=== PATIENT | female | born 1995 | race Caucasian/White ===

== ENCOUNTER 2016-11-02 13:07 | Inpatient (IN) | payer OTHER ==
[~2016-11-02] VITALS: Ht 160 cm; Wt 60.4 kg
[2016-11-02] VITALS (7 sets, daily range): BP systolic 103–113; BP diastolic 63–76; PULSE 86–102; TEMP 36.7–37.1; O2SAT 96–100; Ht 160 cm; Wt 60.4 kg
[2016-11-02 13:53] LABS: BASO % 0.1 %; BASO ABS # 0.02 K/uL (0-0.2); COMPLETE YES; EOS % 0.1 %; HEMATOCRIT 44.6 % (37-47); IG% 0.4 %; LYMPH % 12.4 %; MEAN CELL VOLUME 87.6 fL (80-100); MEAN CORPUSCULAR HEMOGLOBIN 29.5 pg (25-34); MEAN CORPUSCULAR HGB CONC 33.6 g/dl (32-36); MEAN PLATELET VOLUME 9.7 fL (7.4-10.4); MONO % 4.3 %; NEUT % 82.7 %; PLATELET COUNT 247 K/uL (130-400); RED BLOOD COUNT 5.09 M/uL (4.2-5.4); WHITE BLOOD COUNT 14.53 K/uL (4.8-10.8)
[2016-11-02 14:09] LABS: BUN/CREATININE RATIO 15.9 (10-20); CALCIUM 9.8 mg/dl (8.5-10.1); CREATININE 0.75 mg/dl (0.60-1.20); POTASSIUM 3.6 mmol/L (3.5-5.1)
[2016-11-02 14:19] LABS: URINE APPEARANCE CLEAR (CLEAR); URINE BILIRUBIN NEG (NEG); URINE COLOR YELLOW; URINE NITRITE NEG (NEG); URINE PH 5.5 (4.5-7.5); URINE SPECIFIC GRAVITY 1.021 (1.000-1.030); UROBILINOGEN NEG (NEG)
[2016-11-02 14:20] LABS: MANUAL MICROSCOPIC REQUIRED? NO; REVIEW REQ? NO
--- NOTE | 2016-11-02 15:16 | DIAGNOSTIC IMAGING REPORT ---
ULTRASOUND RIGHT UPPER QUADRANT ABDOMEN CLINICAL HISTORY: Right upper quadrant abdominal pain. COMPARISON STUDY: No priors. TECHNIQUE: Real-time, grayscale, and color flow sonography of the right upper quadrant of the abdomen was performed. Images are reviewed in the transverse and longitudinal planes. FINDINGS: Liver: The liver is normal in size and echotexture. There is no intrahepatic biliary ductal dilatation. The main portal vein is patent. Gallbladder: The gallbladder is normal in appearance. No gallstones are identified. There is no gallbladder wall thickening or pericholecystic fluid. A sonographic Holland's sign is reportedly absent. The common bile duct measures up to 0.3 cm in diameter. Pancreas: Visualized portions of the pancreatic head and body are normal in appearance. Right kidney: Survey images of the right kidney demonstrate normal size and echotexture. There is no hydronephrosis. Ascites: None. IMPRESSION: Unremarkable sonographic assessment of the right upper quadrant. No gallstones are identified. Electronically signed by: Nigel Fitzgerald M.D. 11/02/2016 3:15 PM Dictated Date/Time: 11/02/2016 3:14 PM
[2016-11-02] MEDS ORDERED: OPTIRAY 320 IV PRN (15:30)
--- NOTE | 2016-11-02 16:02 | DIAGNOSTIC IMAGING REPORT ---
CT SCAN OF THE ABDOMEN AND PELVIS WITH IV CONTRAST CLINICAL HISTORY: Right upper quadrant abdominal pain. COMPARISON STUDY: Abdominal ultrasound performed the same day 11/02/2016. TECHNIQUE: Following the IV administration of 115 cc of Optiray 320, CT scan of the abdomen and pelvis is performed from the lung bases to the proximal femora. Images are reviewed in the axial, sagittal, and coronal planes. IV contrast was administered without complication. The examination was performed in suboptimal fashion without oral contrast. Automated dose control exposure was utilized. CT DOSE: 252.09 mGy.cm FINDINGS: Lung bases: The heart is normal in size and without pericardial effusion. The lung bases are clear. Liver: The contrast-enhanced liver is normal in size, contour, and attenuation. There is no intrahepatic biliary ductal dilatation. The hepatic veins and portal veins are patent. Gallbladder: Unremarkable. Spleen: Normal in size and attenuation. Pancreas: Unremarkable. Adrenal glands: Unremarkable. Kidneys: The contrast enhanced kidneys are normal in size and without hydronephrosis. The kidneys enhance symmetrically. Abdominal vasculature: The abdominal aorta is normal in course and caliber. Bowel: The small bowel and colon are normal in course and caliber. The appendix is fluid-filled and mildly distended measuring up to 8 mm, best seen on axial image #223. The appendiceal wall is thickened and hyperemic and there is faint periappendiceal inflammation and trace fluid. The appearance is concerning for mild acute appendicitis. There is no evidence of appendiceal abscess. Peritoneum: There is no intraperitoneal free air or abdominal ascites. Lymphadenopathy: None. Pelvic viscera: The bladder, uterus, and adnexa are normal as visualized. There are bilateral ovarian follicles. Trace free fluid is seen in the cul-de-sac. Nabothian cysts are suspected in the cervix. Skeletal structures: A pectus deformity is incidentally noted. No lytic or blastic lesions are seen. IMPRESSION: 1. Findings are concerning for mild acute appendicitis. There is no intraperitoneal free air or evidence of abscess. Surgical consultation is advised. If acute appendicitis does not fit the clinical presentation consider short-term follow-up imaging of the pelvis only for reassessment. 2. There is trace free fluid in the cul-de-sac, likely within physiologic limits. Electronically signed by: Nigel Fitzgerald M.D. 11/02/2016 4:01 PM Dictated Date/Time: 11/02/2016 3:55 PM
[2016-11-02] MEDS ORDERED: CEFOXITIN SOD 2 GM VIAL IV STA (16:11)
--- NOTE | 2016-11-02 16:47 | History and Physical ---
History & Physical Date Nov 02, 2016. Chief Complaint abd pain History of Present Illness The patient is a 21 year old female with complaints of Rt sided abd pain- found on w/u including CT with acute appendicitis Past Medical/Surgical History Medical Problems: (1) Pelvic inflammatory disease Additional History Hepatic Disease: No Endocrine Disorder: No Kidney Disease: No Hypertension: No Heart Disease: No Bleeding Tendencies: No Allergies Coded Allergies: No Known Allergies (Unverified , 11/02/16) Home Medications No Active Prescriptions or Reported Meds Physical Examination Skin: warm/dry, no rash Eyes: sclerae normal Head: atraumatic Neck: supple Respiratory/Chest: no respiratory distress Cardiovascular: regular rate, rhythm Abdomen / GI: normal bowel sounds (abd- tender RLQ) Extremities: normal inspection Neurologic/Psych: alert Diagnosis acute appendicitis Plan of Treatment For laparoscopic appendectomy, possible open operation IV atbx
--- NOTE | 2016-11-02 17:18 | EMERGENCY ROOM VISIT NOTE ---
History Report prepared by Paula: Juliane Keith Under the Supervision of: Dr. Ferdinand Vasquez M.D. First contact with patient: 13:24 Chief Complaint: RIB PAIN Stated Complaint: PAIN IN LOWER PART OF RT RIB History of Present Illness The patient is a 21 year old female who presents to the Emergency Room with complaints of waxing and waning right upper quadrant abdominal pain that began this morning. She currently rates her discomfort as a 4/10 in severity describing her discomfort as a sharp pain. The patient states that this morning she woke up with diffuse abdominal pain, but now she localizes the pain to her right upper quadrant that radiates to her back. She additionally associates nausea and diarrhea with her symptoms today. The patient states that she went to [facility] today and states that she was referred to the emergency department for further work up regarding her gallbladder. She states that there is a family history of gallbladder disease, stating that her mother had a cholecystectomy at a young age. The patient states that she has never been in the past, and denies her mother being prior to her gallbladder issues. She denies using any control pills and denies being a smoker. The patient denies any chest pain, shortness of breath, vomiting, urinary symptoms, or leg pain or swelling. Source of History: patient Onset: this morning Position: abdomen (RUQ) Symptom Intensity: 4/10 Quality: sharp Timing: waxes/wanes Associated Symptoms: + diarrhea, + nausea, No SOB, No chest pain, No urinary symptoms, No vomiting Review of Systems See HPI for pertinent positives & negatives. A total of 10 systems reviewed and were otherwise negative. Past Medical & Surgical Medical Problems: (1) Acute appendicitis (2) Pelvic inflammatory disease Family History FHx: gallbladder disease Heart disease Kidney disease Kidney stones Social History Smoking Status: Never Smoker Smokeless Tobacco Use: No Alcohol Use: occasionally Marital Status: single Housing Status: lives with roommate Occupation Status: [employer] student Current/Historical Medications No Active Prescriptions or Reported Meds Allergies Coded Allergies: No Known Allergies (Unverified , 11/02/16) Physical Exam Vital Signs Date Time Temp Pulse Resp B/P Pulse Ox O2 Delivery O2 Flow Rate FiO2 11/02/16 16:38 86 20 115/91 100 Room Air 11/02/16 14:56 105 18 105/61 99 Room Air 11/02/16 13:20 37.0 113 18 123/72 95 Room Air Physical Exam Constitutional: Vital signs reviewed. Eyes: Pupils are equal round reactive to light. Conjunctiva are noninjected. ENT: Pharynx is clear without erythema or exudate. Mucous membranes are moist. Neck supple without meningeal signs. Respiratory: Clear to auscultation bilaterally. Breath sounds are equal bilaterally. Cardiovascular: Regular rate and rhythm. No rubs or gallops. GI: Right upper quadrant and epigastric tenderness. No Holland's sign. Soft, nondistended. Bowel sounds are present. Musculoskeletal: No peripheral edema. No CVA tenderness. Integumentary: No cyanosis. Neurological: The patient is awake and alert. No focal deficits. Psychiatric: Normal affect. Medical Decision & Procedures ER Provider Diagnostic Interpretation: Radiology results as stated below per my review and the radiologist's interpretation: ULTRASOUND RIGHT UPPER QUADRANT ABDOMEN CLINICAL HISTORY: Right upper quadrant abdominal pain. COMPARISON STUDY: No priors. TECHNIQUE: Real-time, grayscale, and color flow sonography of the right upper quadrant of the abdomen was performed. Images are reviewed in the transverse and longitudinal planes. FINDINGS: Liver: The liver is normal in size and echotexture. There is no intrahepatic biliary ductal dilatation. The main portal vein is patent. Gallbladder: The gallbladder is normal in appearance. No gallstones are identified. There is no gallbladder wall thickening or pericholecystic fluid. A sonographic Holland's sign is reportedly absent. The common bile duct measures up to 0.3 cm in diameter. Pancreas: Visualized portions of the pancreatic head and body are normal in appearance. Right kidney: Survey images of the right kidney demonstrate normal size and echotexture. There is no hydronephrosis. Ascites: None. IMPRESSION: Unremarkable sonographic assessment of the right upper quadrant. No gallstones are identified. Electronically signed by: Nigel Fitzgerald M.D. 11/02/2016 3:15 PM Dictated Date/Time: 11/02/2016 3:[address] SCAN OF THE ABDOMEN AND PELVIS WITH IV CONTRAST CLINICAL HISTORY: Right upper quadrant abdominal pain. COMPARISON STUDY: Abdominal ultrasound performed the same day 11/02/2016. TECHNIQUE: Following the IV administration of 115 cc of Optiray 320, CT scan of the abdomen and pelvis is performed from the lung bases to the proximal femora. Images are reviewed in the axial, sagittal, and coronal planes. IV contrast was administered without complication. The examination was performed in suboptimal fashion without oral contrast. Automated dose control exposure was utilized. CT DOSE: 252.09 mGy.cm FINDINGS: Lung bases: The heart is normal in size and without pericardial effusion. The lung bases are clear. Liver: The contrast-enhanced liver is normal in size, contour, and attenuation. There is no intrahepatic biliary ductal dilatation. The hepatic veins and portal veins are patent. Gallbladder: Unremarkable. Spleen: Normal in size and attenuation. Pancreas: Unremarkable. Adrenal glands: Unremarkable. Kidneys: The contrast enhanced kidneys are normal in size and without hydronephrosis. The kidneys enhance symmetrically. Abdominal vasculature: The abdominal aorta is normal in course and caliber. Bowel: The small bowel and colon are normal in course and caliber. The appendix is fluid-filled and mildly distended measuring up to 8 mm, best seen on axial image #223. The appendiceal wall is thickened and hyperemic and there is faint periappendiceal inflammation and trace fluid. The appearance is concerning for mild acute appendicitis. There is no evidence of appendiceal abscess. Peritoneum: There is no intraperitoneal free air or abdominal ascites. Lymphadenopathy: None. Pelvic viscera: The bladder, uterus, and adnexa are normal as visualized. There are bilateral ovarian follicles. Trace free fluid is seen in the cul-de-sac. Nabothian cysts are suspected in the cervix. Skeletal structures: A pectus deformity is incidentally noted. No lytic or blastic lesions are seen. IMPRESSION: 1. Findings are concerning for mild acute appendicitis. There is no intraperitoneal free air or evidence of abscess. Surgical consultation is advised. If acute appendicitis does not fit the clinical presentation consider short-term follow-up imaging of the pelvis only for reassessment. 2. There is trace free fluid in the cul-de-sac, likely within physiologic limits. Electronically signed by: Nigel Fitzgerald M.D. 11/02/2016 4:01 PM Dictated Date/Time: 11/02/2016 3:55 PM Laboratory Results 11/02/16 13:45 Red Blood Count 5.09, Mean Corpuscular Volume 87.6, Mean Corpuscular Hemoglobin 29.5, Mean Corpuscular Hemoglobin Concent 33.6, Mean Platelet Volume 9.7, Neutrophils (%) (Auto) 82.7, Lymphocytes (%) (Auto) 12.4, Monocytes (%) (Auto) 4.3, Eosinophils (%) (Auto) 0.1, Basophils (%) (Auto) 0.1, Neutrophils # (Auto) 12.01, Lymphocytes # (Auto) 1.80, Monocytes # (Auto) 0.62, Eosinophils # (Auto) 0.02, Basophils # (Auto) 0.02 11/02/16 13:45 Test 11/02/16 13:40 11/02/16 13:45 Urine Color YELLOW Urine Appearance CLEAR (CLEAR) Urine pH 5.5 (4.5-7.5) Urine Specific [place] 1.021 (1.000-1.030) Urine Protein NEG (NEG) Urine Glucose (UA) NEG (NEG) Urine Ketones NEG (NEG) Urine Occult Blood NEG (NEG) Urine Nitrite NEG (NEG) Urine Bilirubin NEG (NEG) Urine Urobilinogen NEG (NEG) Urine Leukocyte Esterase NEG (NEG) Urine Test NEG (NEG) White Blood Count 14.53 K/uL (4.8-10.8) Red Blood Count 5.09 M/uL (4.2-5.4) Hemoglobin 15.0 g/dL (12.0-16.0) Hematocrit 44.6 % (37-47) Mean Corpuscular Volume 87.6 fL (80-100) Mean Corpuscular Hemoglobin 29.5 pg (25-34) Mean Corpuscular Hemoglobin Concent 33.6 g/dl (32-36) Platelet Count 247 K/uL (130-400) Mean Platelet Volume 9.7 fL (7.4-10.4) Neutrophils (%) (Auto) 82.7 % Lymphocytes (%) (Auto) 12.4 % Monocytes (%) (Auto) 4.3 % Eosinophils (%) (Auto) 0.1 % Basophils (%) (Auto) 0.1 % Neutrophils # (Auto) 12.01 K/uL (1.4-6.5) Lymphocytes # (Auto) 1.80 K/uL (1.2-3.4) Monocytes # (Auto) 0.62 K/uL (0.11-0.59) Eosinophils # (Auto) 0.02 K/uL (0-0.5) Basophils # (Auto) 0.02 K/uL (0-0.2) RDW Standard Deviation 41.5 fL (36.4-46.3) RDW Coefficient of Variation 12.9 % (11.5-14.5) Immature Granulocyte % (Auto) 0.4 % Immature Granulocyte # (Auto) 0.06 K/uL (0.00-0.02) Anion Gap 11.0 mmol/L (3-11) Est Creatinine Clear Calc Drug Dose 98.9 ml/min Estimated GFR () 133.0 Estimated GFR (Non- 114.7 BUN/Creatinine Ratio 15.9 (10-20) Calcium Level 9.8 mg/dl (8.5-10.1) Total Bilirubin 2.2 mg/dl (0.2-1) Direct Bilirubin 0.4 mg/dl (0-0.2) Aspartate Amino Transf (AST/SGOT) 20 U/L (15-37) Alanine Aminotransferase (ALT/SGPT) 27 U/L (12-78) Alkaline Phosphatase 113 U/L (45-117) Total Protein 8.9 gm/dl (6.4-8.2) Albumin 4.9 gm/dl (3.4-5.0) Lipase 70 U/L (73-393) Laboratory results as reviewed by me. Medications Administered Medications (Trade) Dose Ordered Sig/Chitra Route Start Time Stop Time Status Last Admin Dose Admin Cefoxitin Sodium (Mefoxin IV) 2,000 mg NOW STAT IV 11/02/16 16:11 11/02/16 16:13 DC 11/02/16 16:35 2,000 MG ED Course 1328: The patient was evaluated in room B4B. A complete history and physical exam was performed. 1530: I reevaluated the patient and she is noticing more pain into her right lower quadrant. She agreed to a CT scan to rule out appendicitis. The patient denies any chest pain or shortness of breath. She states that two weeks ago she was treated for possible PID with antibiotics. She denies any abnormal vaginal discharge or bleeding. The patient states that she tested negative for gonorrhea and Chlamydia. 1607: I reevaluated the patient and she is now localizing her abdominal pain to McBurneys point. I discussed all the exam findings with her and I discussed the treatment plan. She verbalized complete understanding and agreement. She will be evaluated for further treatment. 1608: I discussed the patients case with Dr. Perez, General Surgery. He wants the patient to receive antibiotics and he will see the patient. 1611: Ordered Mefoxin IV 2000 mg IV. Medical Decision This is a 21-year-old female who presents with right-sided abdominal pain. Differential diagnosis includes kidney stone, cholelithiasis, cholecystitis, pancreatitis, appendicitis. I did perform a limited focused review of portions of the patient's old chart on the electronic medical record. The patient has had no prior visits. I did evaluate the patient as noted above. The patient is having right-sided abdominal pain. She is mostly tender in the right upper quadrant and mid abdomen. She does not have significant tenderness at McBurney's point. She does have a strong family history of gallbladder disease and stated that her mother had her gallbladder out when she was young and before she was . IV access was established. She declined any pain medicines. The patient was made nothing by mouth. Her urinalysis is unremarkable. Urine test is negative. I did order and review the patient's blood work as noted in the electronic medical record. Her white blood cell count is elevated. LFTs are unremarkable. I did order an ultrasound of the right upper quadrant. There is no evidence of hydronephrosis or gallbladder disease. I did reassess the patient. She is now localizing her pain to the right lower quadrant and is tender at McBurney's point. After discussion with the patient, I did order a CT of the abdomen and pelvis. I did review the images myself as well as the radiology report as described above. She does appear to have an early appendicitis. I did discuss case with Dr. Perez of surgery. I did treat the patient with Mefoxin IV. Consults Time Called: 1606 Consulting Physician: Dr. Perez, General Surgery Returned Call: 1608 I discussed the patients case with Dr. Perez, General Surgery. He wants the patient to receive antibiotics and he will down to see the patient. Impression Primary Impression: Acute appendicitis Scribe Attestation The scribe's documentation has been prepared under my direct and personally reviewed by me in its entirety. I confirm that the note above accurately reflects all work, treatment, procedures, and medical decision making performed by me. Departure Information Dispostion Being Evaluated By Surgeon Prescriptions No Active Prescriptions or Reported Meds Referrals No Doctor, Assigned (PCP) Problem Qualifiers Primary Impression: Acute appendicitis Acute appendicitis type: unspecified acute appendicitis type Qualified Codes : K35.80 - Unspecified acute appendicitis
[2016-11-02] MEDS ORDERED: BUPIVACAINE 0.5 % 5 MG/1 ML MPF 30ML VIAL ONE (17:25)
[2016-11-02] MEDS ORDERED: KETOROLAC TROMETHAMINE 30 MG/ML VIAL IV. PRN (17:45)
[2016-11-02] MEDS ORDERED: HYDROmorphone INJ 2 MG/ML SYR/VIAL IV PRN (17:45)
[2016-11-02] MEDS ORDERED: MIDAZOLAM HCL 1 MG/ML 2ML VIAL ONE (17:45)
[2016-11-02] MEDS ORDERED: ATROPINE SULFATE 0.1 MG/ML 5ML SYR IV PRN (17:45)
[2016-11-02] MEDS ORDERED: PROMETHAZINE HCL INJ 12.5 MG in SODIUM CHLORIDE 0.9% 50ML 50 ML IV PRN ×2 (17:45→19:45)
[2016-11-02] MEDS ORDERED: ONDANSETRON INJ 2 MG/ML 2 ML VIAL IV PRN ×2 (17:45→19:15)
[2016-11-02] MEDS ORDERED: FENTANYL CITRATE INJ 50 MCG/1 ML 2 ML VIAL ONE ×2 (17:46→18:49)
[2016-11-02] MEDS ORDERED: PROPOFOL IV EMULSION 10 MG/ML 20 ML VIAL IV ONE (18:57)
[2016-11-02] MEDS ORDERED: ROCURONIUM BROMID 50MG/5ML SYR ONE (18:57)
[2016-11-02] MEDS ORDERED: METOCLOPRAMIDE HCL INJ 5 MG/ML 2 ML VIAL ONE (18:57)
[2016-11-02] MEDS ORDERED: GLYCOPYRROLATE INJ 0.2 MG/ML VIAL ONE (18:57)
[2016-11-02] MEDS ORDERED: NEOSTIGMINE METHYLSULFATE 5 MG/5 ML SYR ONE (18:57)
[2016-11-02] MEDS ORDERED: ONDANSETRON INJ 2 MG/ML 2 ML VIAL ONE (18:57)
--- NOTE | 2016-11-02 19:01 | [facility] Post Operative Brief Note ---
Immediate Operative Summary Operative Date Nov 02, 2016. Pre-Operative Diagnosis APPENDICITIS Post-Operative Diagnosis SAME PREOP Procedure(s) Performed LAPAROSCOPIC APPENDECTOMY Surgeon DR. Arsen CH[employer] Vice President Surgeon(s) Nicanor OCASIO RN Estimated Blood Loss 10ml Findings nonperforated appendix Specimens APPENDIX Anesthesia gen Complication(s) None Disposition Recovery Room / PACU
[2016-11-02] MEDS ORDERED: MEPERIDINE HCL 50 MG/ML CARP ONE (19:02)
[2016-11-02] MEDS ORDERED: KETOROLAC TROMETHAMINE 30 MG/ML VIAL ONE (19:13)
[2016-11-02] MEDS ORDERED: MoRPHine SULFATE 4 MG/ML 1 ML CARP\\VIAL IV PRN (19:15)
[2016-11-02] MEDS ORDERED: MoRPHine SULFATE 2 MG/ML CARP IV PRN (19:15)
[2016-11-02] MEDS ORDERED: HYDROCODONE/ACETAMOPHEN 5/325MG TAB PO PRN (19:15)
[2016-11-02] MEDS ORDERED: PROMETHAZINE HCL INJ 25 MG in SODIUM CHLORIDE 0.9% 50ML 50 ML IV PRN (19:15)
[2016-11-02] MEDS ORDERED: MEPERIDINE HCL 25 MG/ML CARP IV PRN (19:15)
--- NOTE | 2016-11-02 19:38 | Anesthesiology Progress Note ---
Anesthesia Post Op Note Date & Time Nov 02, 2016 at 19:38 Vital Signs Pain Intensity: 3 Vital Signs Past 12 Hours Date Time Temp Pulse Resp B/P Pulse Ox O2 Delivery O2 Flow Rate FiO2 11/02/16 19:30 76 20 115/67 100 Nasal Cannula 3 11/02/16 19:20 78 20 121/74 100 Nasal Cannula 3 11/02/16 19:10 84 20 123/73 100 Nasal Cannula 3 11/02/16 19:04 37.2 110 20 130/60 100 Nasal Cannula 3 11/02/16 16:38 86 20 115/91 100 Room Air 11/02/16 14:56 105 18 105/61 99 Room Air 11/02/16 13:20 37.0 113 18 123/72 95 Room Air Notes Mental Status: alert / awake / arousable, participated in evaluation Pt Amnestic to Procedure: Yes Nausea / Vomiting: adequately controlled Pain: adequately controlled Airway Patency, RR, SpO2: stable & adequate BP & HR: stable & adequate Hydration State: stable & adequate Anesthetic Complications: no major complications apparent
--- NOTE | 2016-11-02 19:59 | OPERATIVE REPORT ---
DATE OF OPERATION: 11/02/2016 NAME OF OPERATION: Laparoscopic appendectomy. PREOPERATIVE DIAGNOSIS: Acute appendicitis. POSTOPERATIVE DIAGNOSIS: Same. STAFF SURGEON: Dr. Perez. ANESTHESIA: General anesthetic. DESCRIPTION OF PROCEDURE: The patient was brought in the operating room and placed on the operating table in supine position. Rooney catheter, pneumatic stockings and orogastric tube were placed. All incisions were anesthetized using 0.5% plain Marcaine. Incision was made above the umbilicus, carrying dissection down to the fascia, placing a Veress needle producing pneumoperitoneum, placing a 5-mm port. Under visualization, another 5-mm port was placed suprapubically and then a 12 mm port placed in left lower quadrant. The cecum was retracted medially. The appendix was retrocecal and adherent. The base of the appendix was transected using EndoGIA stapler, then 2 additional loads were used to transect the mesentery, also I had to dissect the appendix away from the retroperitoneum through adhesions and I did use some 10 mm clips. The appendix was not perforated. It was placed in an Endobag, it was removed through the left lower quadrant site. After appropriate hemostasis and irrigation all ports were removed. The fascia and left lower quadrant closed using interrupted 0 Vicryl suture. Skin reapproximated at all incisions using subcuticular 4-0 Monocryl, left lower quadrant closed using half inch Steri-Strips. The other sites closed using Dermabond. The patient was transferred to recovery room in stable condition. I attest to the content of the Intraoperative Record and any orders documented therein. Any exceptio ns are noted below.
[2016-11-02] MEDS ORDERED: IV FLUIDS COMPLETED PRN (20:15)
[2016-11-02] MEDS: LACTATED RINGER'S 1000ML 1,000 ML IV SCH (20:16)
[2016-11-02] MEDS: HYDROCODONE/ACETAMOPHEN 5/325MG TAB PO PRN (23:11)
[2016-11-02] MEDS: CEFOXITIN IV 1,000 MG in DEXTROSE 5% 50ML 50 ML IV SCH (23:11)
[2016-11-03] MEDS: HYDROCODONE/ACETAMOPHEN 5/325MG TAB PO PRN ×3 (05:39→19:21)
[2016-11-03 05:46] LABS: HEMATOCRIT 36.7 % (37-47); MEAN CELL VOLUME 87.2 fL (80-100); MEAN CORPUSCULAR HEMOGLOBIN 29.7 pg (25-34); MEAN CORPUSCULAR HGB CONC 34.1 g/dl (32-36); MEAN PLATELET VOLUME 9.3 fL (7.4-10.4); PLATELET COUNT 195 K/uL (130-400); RED BLOOD COUNT 4.21 M/uL (4.2-5.4); WHITE BLOOD COUNT 8.59 K/uL (4.8-10.8)
--- NOTE | 2016-11-03 06:26 | Surgery Progress Note ---
Surgery Progress Note Date of Service Nov 03, 2016. Subjective No nausea, No vomiting some pain- controlled Objective Vital Signs: Date Time Temp Pulse Resp B/P Pulse Ox O2 Delivery O2 Flow Rate FiO2 11/02/16 23:22 36.9 86 16 107/68 97 Room Air 11/02/16 22:45 37.1 89 16 103/63 96 Room Air 11/02/16 21:34 36.7 102 16 110/72 98 Room Air 11/02/16 21:03 36.9 98 16 113/70 98 Room Air 11/02/16 20:47 98 Room Air 11/02/16 20:37 37.0 94 16 113/76 98 Room Air 11/02/16 20:35 36.9 95 20 111/72 100 Room Air 11/02/16 19:40 37 83 20 119/68 100 Nasal Cannula 3 11/02/16 19:30 76 20 115/67 100 Nasal Cannula 3 11/02/16 19:20 78 20 121/74 100 Nasal Cannula 3 11/02/16 19:10 84 20 123/73 100 Nasal Cannula 3 11/02/16 19:04 37.2 110 20 130/60 100 Nasal Cannula 3 11/02/16 16:38 86 20 115/91 100 Room Air 11/02/16 14:56 105 18 105/61 99 Room Air 11/02/16 13:20 37.0 113 18 123/72 95 Room Air General Appearance: no apparent distress Respiratory/Chest: no respiratory distress Abdomen: soft Incision(s): intact Laboratory Results: Results Past 24 Hours Test 11/02/16 13:40 11/02/16 13:45 11/03/16 05:36 Range/Units Urine Color YELLOW Urine Appearance CLEAR CLEAR Urine pH 5.5 4.5-7.5 Urine Specific [place] 1.021 1.000-1.030 Urine Protein NEG NEG Urine Glucose (UA) NEG NEG Urine Ketones NEG NEG Urine Occult Blood NEG NEG Urine Nitrite NEG NEG Urine Bilirubin NEG NEG Urine Urobilinogen NEG NEG Urine Leukocyte Esterase NEG NEG Urine Test NEG NEG White Blood Count 14.53 8.59 4.8-10.8 K/uL Red Blood Count 5.09 4.21 4.2-5.4 M/uL Hemoglobin 15.0 12.5 12.0-16.0 g/dL Hematocrit 44.6 36.7 37-47 % Mean Corpuscular Volume 87.6 87.2 80-100 fL Mean Corpuscular Hemoglobin 29.5 29.7 25-34 pg Mean Corpuscular Hemoglobin Concent 33.6 34.1 32-36 g/dl Platelet Count 247 195 130-400 K/uL Mean Platelet Volume 9.7 9.3 7.4-10.4 fL Neutrophils (%) (Auto) 82.7 % Lymphocytes (%) (Auto) 12.4 % Monocytes (%) (Auto) 4.3 % Eosinophils (%) (Auto) 0.1 % Basophils (%) (Auto) 0.1 % Neutrophils # (Auto) 12.01 1.4-6.5 K/uL Lymphocytes # (Auto) 1.80 1.2-3.4 K/uL Monocytes # (Auto) 0.62 0.11-0.59 K/uL Eosinophils # (Auto) 0.02 0-0.5 K/uL Basophils # (Auto) 0.02 0-0.2 K/uL RDW Standard Deviation 41.5 41.5 36.4-46.3 fL RDW Coefficient of Variation 12.9 12.9 11.5-14.5 % Immature Granulocyte % (Auto) 0.4 % Immature Granulocyte # (Auto) 0.06 0.00-0.02 K/uL Sodium Level 138 136-145 mmol/L Potassium Level 3.6 3.5-5.1 mmol/L Chloride Level 102 98-107 mmol/L Carbon Dioxide Level 25 21-32 mmol/L Anion Gap 11.0 3-11 mmol/L Blood Urea Nitrogen 12 7-18 mg/dl Creatinine 0.75 0.60-1.20 mg/dl Est Creatinine Clear Calc Drug Dose 98.9 ml/min Estimated GFR () 133.0 Estimated GFR (Non- 114.7 BUN/Creatinine Ratio 15.9 10-20 Random Glucose 89 70-99 mg/dl Calcium Level 9.8 8.5-10.1 mg/dl Total Bilirubin 2.2 0.2-1 mg/dl Direct Bilirubin 0.4 0-0.2 mg/dl Aspartate Amino Transf (AST/SGOT) 20 15-37 U/L Alanine Aminotransferase (ALT/SGPT) 27 12-78 U/L Alkaline Phosphatase 113 45-117 U/L Total Protein 8.9 6.4-8.2 gm/dl Albumin 4.9 3.4-5.0 gm/dl Lipase 70 73-393 U/L Assessment & Plan 11/03/16- s/p laparoscopic appendectomy- will adv diet- cont IV atbx probable d/c tomorrow
[2016-11-03 08:02] VITALS: BP 116/76; PULSE 84; TEMP 36.8; O2SAT 98
[2016-11-03] MEDS: CEFOXITIN IV 1,000 MG in DEXTROSE 5% 50ML 50 ML IV SCH ×3 (08:24→23:11)
[2016-11-03 12:23] VITALS: BP 100/68; PULSE 78; TEMP 37.2; O2SAT 97
[2016-11-03] MEDS: LACTATED RINGER'S 1000ML 1,000 ML IV SCH (13:26)
[2016-11-03 14:50] VITALS: BP 99/66; PULSE 79; TEMP 36.7; O2SAT 96
[2016-11-03] MEDS ORDERED: CIPR-255 PO (19:11)
[2016-11-03] MEDS ORDERED: HYDR-5688 PO (19:11)
--- NOTE | 2016-11-03 19:14 | Discharge Instructions ---
Discharge Instructions Admission Reason for Admission: Acute Appendicitis Discharge Discharge Diagnosis / Problem: acute appendicitis Discharge Goals Goal(s): Decrease discomfort, Improve function, Improve disease control Activity Recommendations Activity Limitations: as noted below Lifting Limitations: no more than 10 pounds Exercise/Sports Limitations: until after follow-up appointment May Resume Sexual Activity: when tolerated Shower/Bathe: no limitations (may shower, no bath for 1 week) SPECIAL CARE INSTRUCTIONS: * Cover incisions and change daily for comfort/drainage. may leave uncovered with dermabond * Leave steri strips in place * May use ibuprofen for pain as tolerated. * Expect some swelling and bruising. Call your doctor if: * Temperature above 101 degrees * Pain not relieved by pain medicine ordered * There is increased drainage or redness from any incision * You have any unanswered questions or concerns [phone]. FOLLOW UP VISIT: If not already scheduled, please call the office for a follow-up visit. for 2-3 weeks OFFICE PHONE NUMBER: Dr. Perez Office . Current Hospital Diet Patient's current hospital diet: Regular Diet Discharge Diet Recommended Diet: Regular Diet Procedures Procedures Performed: LAPAROSCOPIC APPENDECTOMY Pending Studies Studies pending at discharge: no School Instructions Return To School: 1 week (she will need at least 1 week recovery from school) Medical Emergencies . Who to Call and When: Medical Emergencies: If at any time you feel your situation is an emergency, please call 911 immediately. . Non-Emergent Contact Non-Emergency issues call your: Surgeon . "Provider Documentation" section prepared by Mahesh Perez. VTE Core Measure Inpt VTE Proph given/why not?: SCD's
[2016-11-03 23:15] VITALS: BP 105/66; PULSE 71; TEMP 36.6; O2SAT 98
[2016-11-04] MEDS: HYDROCODONE/ACETAMOPHEN 5/325MG TAB PO PRN (03:55)
[2016-11-04] MEDS: LACTATED RINGER'S 1000ML 1,000 ML IV SCH (05:35)
[2016-11-04 06:57] VITALS: BP 103/67; PULSE 76; TEMP 36.6; O2SAT 98
[2016-11-04 07:20] VITALS: BP 103/67; PULSE 76; TEMP 36.6; O2SAT 98
[2016-11-04] MEDS: CEFOXITIN IV 1,000 MG in DEXTROSE 5% 50ML 50 ML IV SCH (07:22)
--- NOTE | 2016-11-06 15:01 | DISCHARGE SUMMARY ---
PRIMARY DISCHARGE DIAGNOSIS: Acute appendicitis. PROCEDURE PERFORMED: Laparoscopic appendectomy. HOSPITAL COURSE: The patient is a 21-year-old female who presented to the Emergency Department with 1 day history of abdominal pain. Her white count was 14,000. CT showed dilated fluid filled appendix at 8 mm and consistent with appendicitis. She was taken to the operating room for laparoscopic appendectomy that evening. The procedure was well tolerated. She was transferred to the surgical floor. The next morning, she was tolerating diet and oral analgesics. Her abdomen was benign. She was stable for discharge. Her white count had improved to 8000. DISCHARGE INSTRUCTIONS: Discharge home. Follow up with Dr. Perez in 2 weeks. DISCHARGE MEDICATIONS: Cipro 500 mg p.o. b.i.d. x5 days and Ulen 1-2 tablets every 6 hours as needed for pain.
== END 2016-11-04 09:35 | disposition home or self-care (01) | DRG 343 ==
LOC: ENRESERVTM → ENRESERVDT → C.EDB 13:18 → C.MSW 16:50 → OBSVTOIN 11-03 06:24
PROVIDERS: ADMIT Surgery; ATTEND Surgery
PROC: 0DTJ4ZZ Resection of Appendix, Percutaneous Endoscopic Approach (ICD-10-PCS; principal; 2016-11-02 17:23)
DX: K35.80 Unspecified acute appendicitis (principal)